=== PATIENT | male | born 1975 ===

== ENCOUNTER 2017-11-05 13:42 | Outpatient (CLI) | payer BC | END 2017-11-05 13:43 | disposition home or self-care (01) | LOC: BICULT 13:42 | PROVIDERS: ATTEND Urology | DX: R86.9 Unspecified abnormal finding in specimens from male genital organs (principal) | CPT/HCPCS: 76870; 93976 ==

== ENCOUNTER 2019-03-31 12:34 | Outpatient (CLI) | payer BC ==
--- NOTE | 2019-03-31 14:10 | RAD ---
RIGHT FOOT RADIOGRAPHS THREE VIEWS: 03/31/19 PROVIDED CLINICAL HISTORY: Right foot pain and swelling. FINDINGS: No evidence for fracture or other acute osseous abnormality. If there is persistent clinical concern, conservative management and follow-up imaging are advised. IMPRESSION: As above. POS: [facility]
== END 2019-03-31 12:35 | disposition home or self-care (01) ==
LOC: BICRAD 12:34
PROVIDERS: ATTEND Physician Assistant
DX: M79.671 Pain in right foot (principal); M79.89 Other specified soft tissue disorders
CPT/HCPCS: 36415; 84550; 85025; 85652; 86140